=== PATIENT | male | born 1980 | race American Indian/Alaskan Native ===

== ENCOUNTER 2020-12-29 12:31 | Emergency (ER) | payer OTHER ==
[2020-12-29] MEDS ORDERED: TETRACAINE 0.5% OPHTH SOLN 4ML OU ONE (12:48)
[2020-12-29] MEDS ORDERED: FLUORESCEIN 1 MG STRIP OP ONE ×2 (12:48)
--- NOTE | 2020-12-29 12:53 | Emergency Department Report ---
ED Eye Problem HPI - General Chief complaint: Eye Problems Stated complaint: EYE PROBLEM Time Seen by Provider: 12/29/20 12:46 Source: patient Mode of arrival: Ambulatory Limitations: No Limitations - History of Present Illness Initial comments: Patient is a 40-year-old who presents emergency room with complaints of bilateral eye irritation. Patient states that last week they accidentally poked themselves in the right eye and believes they scratched with a fingernail. Patient states since then they have had right eye irritation, redness, draining. The patient states that this week the right eye began to have crusting and eyelash matting. Patient states that now the left eye has become irritated, draining, itching, burning. Patient states that the vision feels slightly blurry. Patient states that there is was to wear contact lenses but has not had them in for approximately 6 months. Patient denies anything else getting in the eyes. No past medical history. No allergies to medications. - Related Data Previous Rx's Medication Instructions Recorded Last Taken Type Erythromycin [Erythromycin Ophth 1 applic OP QID 7 Days #1 tube 12/29/20 Unknown Rx Oint] Ketotifen Fumarate 1 drop OP BID #1 bottle 12/29/20 Unknown Rx Allergies Allergy/AdvReac Type Severity Reaction Status Date / Time eggs Allergy Rash Uncoded 12/29/20 12:39 nuts Allergy Anaphylaxis Uncoded 12/29/20 12:39 ED Review of Systems ROS: Stated complaint: EYE PROBLEM Other details as noted in HPI Comment: All other systems reviewed and negative ED Past Medical Hx - Past Medical History Previous Medical History?: No - Surgical History Past Surgical History?: Yes Additional Surgical History: R leg metal delia, 6 screws 2005 - Social History Smoking Status: Never Smoker Substance Use Type: Alcohol - Medications Home Medications: Home Medications Medication Instructions Recorded Confirmed Last Taken Type Erythromycin [Erythromycin Ophth 1 applic OP QID 7 Days #1 tube 12/29/20 Unknown Rx Oint] Ketotifen Fumarate 1 drop OP BID #1 bottle 12/29/20 Unknown Rx ED Physical Exam - General Limitations: No Limitations General appearance: alert, in no apparent distress - Head Head exam: Present: atraumatic, normocephalic - Eye Eye exam: Present: PERRL, EOMI, conjunctival injection (bilaterally, right greater than left), other (fluoroscein stain with chaparro lamp evaluation bilater ally: there is a 3 mm area of uptake to the center of the right eye, no uptake in the left eye, no signs of ulceration, foreign body bilaterally, normal pupils). Absent: scleral icterus, nystagmus, periorbital swelling, periorbital tenderness Pupils: Present: normal accommodation - ENT ENT exam: Present: mucous membranes moist - Respiratory Respiratory exam: Absent: respiratory distress, accessory muscle use - Neurological Exam Neurological exam: Present: alert, oriented X3 - Psychiatric Psychiatric exam: Present: normal affect, normal mood - Skin Skin exam: Present: warm, dry, intact ED Course Vital Signs 12/29/20 12/29/20 12:40 13:32 Temperature 98.2 F 97.8 F Pulse Rate 99 H 90 Respiratory 18 16 Rate Blood Pressure 133/97 Blood Pressure 130/82 [Right] O2 Sat by Pulse 97 100 Oximetry ED Medical Decision Making - Medical Decision Making Patient is a 40-year-old who presents emergency room with complaints of bilateral eye irritation. Patient states that last week they accidentally poked themselves in the right eye and believes they scratched with a fingernail. Patient states since then they have had right eye irritation, redness, draining. The patient states that this week the right eye began to have crusting and eyelash matting. Patient states that now the left eye has become irritated, draining, itching, burning. Patient states that the vision feels slightly blurry. Patient states that there is was to wear contact lenses but has not had them in for approximately 6 months. Patient denies anything else getting in the eyes. No past medical history. No allergies to medications. Vitals are stable. On exam:fluoroscein stain with chaparro lamp evaluation bilaterally: there is a 3 mm area of uptake to the center of the right eye, no uptake in the left eye, no signs of ulceration, foreign body bilaterally, normal pupils, bilateral conjunctival injection, right greater than left. Symptoms appear consistent with right-sided corneal abrasion and bilateral conjunctivitis. Patient given prescription for erythromycin ophthalmic ointment and Zaditor eyedrops. Advised patient Please use medication as prescribed. Please separate drops and ointment by 1 hour. Please wash hands frequently and before placing ointment and after placing ointment. Avoid rubbing the eyes. Follow-up with nocturnist physician. Return to emergency room for any worsening symptoms. Critical care attestation.: If time is entered above; I have spent that time in minutes in the direct care of this critically ill patient, excluding procedure time. ED Disposition Clinical Impression: Corneal abrasion Qualifiers: Encounter type: initial encounter Laterality: right Qualified Code(s): S05.01XA - Injury of conjunctiva and corneal abrasion without foreign body, right eye, initial encounter Conjunctivitis Qualifiers: Conjunctivitis type: acute Acute conjunctivitis type: unspecified Laterality: bilateral Qualified Code(s): H10.33 - Unspecified acute conjunctivitis, bilate ral Disposition: TO HOME OR SELFCARE Is pt being admited?: No Does the pt Need Aspirin: No Condition: Stable Instructions: Bacterial Conjunctivitis, Adult, [id number], Corneal Abrasion, How to Use Eye Drops and Eye Ointments Additional Instructions: Please use medication as prescribed. Please separate drops and ointment by 1 hour. Please wash hands frequently and before placing ointment and after placing ointment. Avoid rubbing the eyes. Follow-up with nocturnist physician. Return to emergency room for any worsening symptoms. Prescriptions: Erythromycin [Erythromycin Ophth Oint] 1 applic OP QID 7 Days #1 tube Ketotifen Fumarate 1 drop OP BID #1 bottle Referrals: [facility] [Referring] - 3-5 Days [facility] [Provider Group] - 3-5 Days CHASE SIMON MD [Staff Physician] - 3-5 Days Forms: Work/School Release Form(ED) Time of Disposition: 13:13 Print Language: PUERTO RICAN
[2020-12-29 13:33] VITALS: BP 130/82
== END 2020-12-29 13:20 | disposition home or self-care (01) ==
LOC: ED 12:31
DX: S05.01XA Injury of conjunctiva and corneal abrasion without foreign body, right eye, initial encounter (principal); H10.9 Unspecified conjunctivitis; Z98.890 Other specified postprocedural states; Z79.899 Other long term (current) drug therapy; Z91.012 Allergy to eggs; Z91.018 Allergy to other foods; X58.XXXA Exposure to other specified factors, initial encounter; Y93.89 Activity, other specified; Y92.89 Other specified places as the place of occurrence of the external cause; Y99.8 Other external cause status
CPT/HCPCS: 99282; 99283

== ENCOUNTER 2021-01-01 21:20 | Emergency (ER) | payer OTHER ==
[2021-01-01 21:34] VITALS: BP 147/86
--- NOTE | 2021-01-01 22:32 | Emergency Department Report ---
ED Eye Problem HPI - General Chief complaint: Eye Problems Stated complaint: EYE PAIN Source: patient Mode of arrival: Ambulatory Limitations: No Limitations - History of Present Illness Initial comments: Patient is a 40-year-old -Faro[place] male with no past medical history presents to the ED with persistent right eye pain for the last 1 week after accidentally scratching his right eye over 1 week ago. Patient states that he is currently on antibiotic eye ointment and also at applying anti-inflammatory pain medications as needed as was prescribed when he was initially evaluated in this ED about 2 days ago.. Patient states that the pain has been persistent and constant but that he has only used this medication for 1 day. Patient states that the matting,. Discharge as well as right eye pain has been persistent and constantly getting worse. Patient denies vision loss, dizziness, syncope, fever, chills, nausea and vomiting, chest pain or shortness of breath. MD chief complaint: eye pain (Right eye pain due to injury), eye redness (Right eye), eye injury (Right eye), other (Right eye purulent discharge and matting) -: Sudden, week(s) (1) Onset Description: sudden Location: right eye Place: home If Injury: direct trauma (Accidentally scratched his right eyeball 1 week ago) Eye Symptoms: redness, pain, discharge Severity: moderate Severity scale (0 -10): 4 If Pain, Quality: sharp, burning, aching Consistency: constant Context: injury (Accidentally scratched his right eyeball 1 week ago) Associated Symptoms: none Treatments Prior to Arrival: NSAID, other (Antibiotic ointment) - Related Data Patient Tetanus UTD: Yes Previous Rx's Medication Instructions Recorded Last Taken Type Erythromycin [Erythromycin Ophth 1 applic OP QID 7 Days #1 tube 12/29/20 Unknown Rx Oint] Ketotifen Fumarate 1 drop OP BID #1 bottle 12/29/20 Unknown Rx Allergies Allergy/AdvReac Type Severity Reaction Status Date / Time eggs Allergy Rash Uncoded 01/01/21 21:28 nuts Allergy Anaphylaxis Uncoded 01/01/21 21:28 ED Review of Systems ROS: Stated complaint: EYE PAIN Other details as noted in HPI Constitutional: denies: chills, fever Eyes: eye pain (Right eye pain), eye discharge (right eye). denies: vision c hange ENT: denies: ear pain, throat pain Respiratory: denies: cough, shortness of breath, wheezing Cardiovascular: denies: chest pain, palpitations Endocrine: no symptoms reported Gastrointestinal: denies: abdominal pain, nausea, diarrhea Genitourinary: denies: urgency, dysuria Musculoskeletal: denies: back pain, joint swelling, arthralgia Skin: denies: rash, lesions Neurological: denies: headache, weakness, paresthesias Psychiatric: denies: anxiety, depression Hematological/Lymphatic: denies: easy bleeding, easy bruising ED Past Medical Hx - Past Medical History Previous Medical History?: No - Surgical History Past Surgical History?: No Additional Surgical History: R leg metal delia, 6 screws 2006 - Social History Smoking Status: Never Smoker Substance Use Type: None - Medications Home Medications: Home Medications Medication Instructions Recorded Confirmed Last Taken Type Erythromycin [Erythromycin Ophth 1 applic OP QID 7 Days #1 tube 12/29/20 Unknown Rx Oint] Ketotifen Fumarate 1 drop OP BID #1 bottle 12/29/20 Unknown Rx ED Physical Exam - General Limitations: No Limitations General appearance: alert, in no apparent distress - Head Head exam: Present: atraumatic, normocephalic, normal inspection - Eye Eye exam: Present: PERRL, EOMI, other (Erythematous right conjunctiva with purulent discharge and matting) Pupils: Present: normal accommodation - ENT ENT exam: Present: normal exam, normal orophraynx, mucous membranes moist, TM's normal bilaterally, normal external ear exam - Neck Neck exam: Present: normal inspection, full ROM - Respiratory Respiratory exam: Present: normal lung sounds bilaterally. Absent: respiratory distress, wheezes, rales, rhonchi, chest wall tenderness, accessory muscle use, decreased breath sounds, prolonged expiratory - Cardiovascular Cardiovascular Exam: Present: normal rhythm, tachycardia, normal heart sounds. Absent: systolic murmur, diastolic murmur, rubs, gallop - GI/Abdominal GI/Abdominal exam: Present: soft, normal bowel sounds. Absent: tenderness, guarding, rebound, hyperactive bowel sounds, hypoactive bowel sounds, organomegaly - Extremities Exam Extremities exam: Present: normal inspection, full ROM, normal capillary refill - Back Exam Back exam: Present: normal inspection, full ROM. Absent: tenderness, CVA tenderness (R), CVA tenderness (L), muscle spasm, paraspinal tenderness, vertebral tenderness - Neurological Exam Neurological exam: Present: alert, oriented X3, CN II-XII intact, normal gait, reflexes normal - Psychiatric Psychiatric exam: Present: normal affect, normal mood - Skin Skin exam: Present: warm, dry, intact, normal color. Absent: rash ED Course Vital Signs 01/01/21 21:32 Temperature 98.3 F Pulse Rate 104 H Respiratory 18 Rate Blood Pressure 147/86 O2 Sat by Pulse 94 Oximetry ED Medical Decision Making - Medical Decision Making This is a 40-year-old -Faroese male with no past medical history presents to the ED with persistent right eye pain for the last 1 week after accidentally scratching his right eye over 1 week ago. Patient states that he is currently on antibiotic eye ointment and also at applying anti-inflammatory pain medications as needed as was prescribed when he was initially evaluated in this ED about 2 days ago.. Patient states that the pain has been persistent and constant but that he has only used this medication for 1 day. The ED, patient is alert and oriented x3 and is not in distress but anxious and tachycardic but afebrile in triage. Patient has been using antibiotic eye ointment and pain medications for the last 24 hours. Patient was advised to continue using these medications as previously instructed and to follow-up with his primary care physician in 5 to 7 days for reevaluation. Patient was advised to return to the ED immediately if his symptoms get worse especially after completion of the antibiotic treatment. - Differential Diagnosis conjunctivitis; corneal abrasion; right eye injury Critical care attestation.: If time is entered above; I have spent that time in minutes in the direct care of this critically ill patient, excluding procedure time. ED Disposition Clinical Impression: Acute purulent conjunctivitis, right eye, Injury of conjunctiva and corneal abrasion without foreign body, right eye, initial encounter Disposition: -01 TO HOME OR SELFCARE Is pt being admited?: No Does the pt Need Aspirin: No Condition: Stable Instructions: Corneal Abrasion, [id number], Bacterial Conjunctivitis, Adult Additional Instructions: Continue with the previously prescribed antibiotic eyedrops, take pain medication as needed by mouth and follow-up with your primary care physician in 7 to 10 days for reevaluation. Return to the ED immediately if symptoms get worse. Referrals: [facility] [Other] - 7-10 days Forms: Work/School Release Form(ED) Time of Disposition: 22:30 Print Language: NAURUAN
== END 2021-01-01 22:50 | disposition home or self-care (01) ==
LOC: ED 21:20
DX: S05.01XA Injury of conjunctiva and corneal abrasion without foreign body, right eye, initial encounter (principal); H10.31 Unspecified acute conjunctivitis, right eye; Z79.899 Other long term (current) drug therapy; Z91.012 Allergy to eggs; Z88.8 Allergy status to other drugs, medicaments and biological substances; X58.XXXA Exposure to other specified factors, initial encounter; Y93.89 Activity, other specified; Y92.89 Other specified places as the place of occurrence of the external cause; Y99.8 Other external cause status
CPT/HCPCS: 99282

== ENCOUNTER 2021-01-15 21:03 | Emergency (ER) | payer OTHER ==
[2021-01-15 23:13] VITALS: BP 134/90
--- NOTE | 2021-01-15 23:29 | Emergency Department Report ---
ED Eye Problem HPI - General Chief complaint: Eye Problems Stated complaint: EYE PROBLEM Time Seen by Provider: 01/15/21 23:19 Source: patient Mode of arrival: Ambulatory Limitations: No Limitations - History of Present Illness Initial comments: CC: eye discharge HPI: THis is a 40 yo male without significant past medical hx who presents with one month of eye irritation and morning discharge. He has been seen at this ED twice and [facility] for similar concern. He has been treated with erythromycin ophthalmic ointment and ketotifen ophthalmic drops. The latter medication has helped. However he had return of the morning discharge. No visual changes. He does not wear contact lenses. chief complaint: other (Eye irritation, morning crusty discharge) -: Gradual, month(s) (1 month ago) Location: right eye If Injury: none Eye Symptoms: discharge Severity: mild Consistency: intermittent Associated Symptoms: none - Related Data Previous Rx's Medication Instructions Recorded Last Taken Type Erythromycin [Erythromycin Ophth 1 applic OP QID 7 Days #1 tube 12/29/20 Unknown Rx Oint] Ketotifen Fumarate 1 drop OP BID #1 bottle 12/29/20 Unknown Rx Cetirizine HCl [ZyrTEC 10mg cap] 10 mg PO DAILY 30 Days #30 capsule 01/15/21 Unknown Rx Allergies Allergy/AdvReac Type Severity Reaction Status Date / Time eggs Allergy Rash Uncoded 01/01/21 21:28 nuts Allergy Anaphylaxis Uncoded 01/01/21 21:28 ED Review of Systems ROS: Stated complaint: EYE PROBLEM Other details as noted in HPI Respiratory: denies: cough ED Past Medical Hx - Past Medical History Previous Medical History?: No - Surgical History Past Surgical History?: Yes Additional Surgical History: R leg metal delia, 6 screws 2005 - Social History Smoking Status: Never Smoker - Medications Home Medications: Home Medications Medication Instructions Recorded Confirmed Last Taken Type Erythromycin [Erythromycin Ophth 1 applic OP QID 7 Days #1 tube 12/29/20 Unknown Rx Oint] Ketotifen Fumarate 1 drop OP BID #1 bottle 12/29/20 Unknown Rx Cetirizine HCl [ZyrTEC 10mg cap] 10 mg PO DAILY 30 Days #30 capsule 01/15/21 Unknown Rx ED Physical Exam - General Limitations: No Limitations General appearance: alert, in no apparent distress - Head Head exam: Present: atraumatic, normocephalic - Eye Eye exam: Present: normal appearance. Absent: scleral icterus, conjunctival injection Pupils: Present: normal accommodation - Expanded Eye Exam Expanded Eyelids: Normal Inspection: Right Pupils: Regular, Round: Right Sclera/Conjunctival: Normal Inspection: Right - Neurological Exam Neurological exam: Present: alert, oriented X3, normal gait - Psychiatric Psychiatric exam: Present: normal affect, normal mood - Skin Skin exam: Present: warm, dry, intact, normal color ED Course Vital Signs 01/15/21 23:11 Temperature 98.1 F Pulse Rate 82 Respiratory 17 Rate Blood Pressure 134/90 O2 Sat by Pulse 98 Oximetry ED Medical Decision Making - Medical Decision Making Clinical impression allergic conjunctivitis prescription for Zyrtec provided referral to [facility]. Critical care attestation.: If time is entered above; I have spent that time in minutes in the direct care of this critically ill patient, excluding procedure time. ED Disposition Clinical Impression: Allergic conjunctivitis of right eye Disposition: DC-01 TO HOME OR SELFCARE Is pt being admited?: No Does the pt Need Aspirin: No Condition: Stable Instructions: Allergic Conjunctivitis, Adult, [id number] Additional Instructions: [facility] [address] [place] [id number] Prescriptions: Cetirizine HCl [ZyrTEC 10mg cap] 10 mg PO DAILY 30 Days #30 capsule
== END 2021-01-16 00:05 | disposition home or self-care (01) ==
LOC: ED 21:03
DX: H10.11 Acute atopic conjunctivitis, right eye (principal); Z98.890 Other specified postprocedural states; Z79.2 Long term (current) use of antibiotics; Z79.899 Other long term (current) drug therapy; Z91.012 Allergy to eggs; Z91.018 Allergy to other foods
CPT/HCPCS: 99282